=== PATIENT | female | born 1975 | race Caucasian/White ===

== ENCOUNTER 2016-11-01 13:03 | Emergency (ER) | payer OTHER ==
[~2016-11-01] VITALS: Ht 172.7 cm; Wt 109.8 kg
[2016-11-01 14:13] VITALS: BP 141/86
--- NOTE | 2016-11-01 14:29 | NUR ---
Patient to bed 6 at this time
--- NOTE | 2016-11-01 14:32 | NUR ---
PT PRESENTS TO ER W/C/O LEFT FLANK PAIN X5 DAYS. HX ASTHMA;PT FEELS NAUSEOUS BUT DENIES VOMITING; SKIN IS PINK/WARM/DRY; AAOX4 WITH EVEN AND STEADY GAIT; LUNGS CLEAR BL; HR EVEN AND REGULAR; PT DENIES ANY FEVER, CP, SOB, OR COUGH AT THIS TIME; PATIENT STATES PAIN OF 7/10 AT THIS TIME; VSS; PATIENT POSITIONED FOR COMFORT; HOB ELEVATED; BEDRAILS UP X2; BED DOWN. ER MD MADE AWARE OF PT STATUS.
[2016-11-01] MEDS ORDERED: oxyCODONE/APAP 5/325 MG 1 TAB TAB PO ONE (14:35)
[2016-11-01] MEDS ORDERED: IBUPROFEN 600 MG TAB PO ONE (14:35)
[2016-11-01] MEDS ORDERED: ONDANSETRON 4 MG ODT PO ONE (14:35)
[2016-11-01 15:40] VITALS: BP 141/86
--- NOTE | 2016-11-01 15:40 | NUR ---
Patient discharged with v/s stable. Written and verbal after care instructions given and explained. Patient alert, oriented and verbalized understanding of instructions. Ambulatory with steady gait. All questions addressed prior to discharge. ID band removed. Patient advised to follow up with PMD. Rx of NORCO AND ZOFRAN given. Patient educated on indication of medication including possible reaction and side effects. Opportunity to ask questions provided and answered.
== END 2016-11-01 15:40 | disposition home or self-care (01) ==
LOC: MED 13:03
DX: R10.9 Unspecified abdominal pain (principal); J45.909 Unspecified asthma, uncomplicated; E11.9 Type 2 diabetes mellitus without complications; Z88.0 Allergy status to penicillin; Z88.5 Allergy status to narcotic agent; Z91.040 Latex allergy status
CPT/HCPCS: 74176; 81002; 81025; 82948; 99284; S0119